=== PATIENT | male | born 2000 | race Caucasian/White ===

== ENCOUNTER 2022-07-16 08:00 | Outpatient (CLI) | payer OTHER | END 2022-07-16 23:59 | disposition home or self-care (01) | LOC: LAB.N 08:00 | PROVIDERS: ATTEND Registered Nurse | DX: L08.9 Local infection of the skin and subcutaneous tissue, unspecified (principal) | CPT/HCPCS: 87070; 87181; 87205 ==

== ENCOUNTER 2022-09-30 18:21 | Emergency (ER) | payer MEDICAID ==
[2022-09-30] MEDS ORDERED: TETANUS/DIPHTHERIA/PERTUSSIS 0.5 ML SYRINGE IM ONE (18:45)
[2022-09-30] MEDS ORDERED: LIDOCAINE 1%-EPI 1:100000 20 ML MDV SUBQ STA (18:46)
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
[2022-09-30 19:43] VITALS: BP 149/91
--- NOTE | 2022-09-30 19:46 | XRAY Report ---
PROCEDURE: Wrist 4 View RT INDICATIONS: knee/hand wrist inj TECHNIQUE: 4 views of the wrist were acquired. COMPARISON: X-ray right wrist, 12/20/2012. X-ray right hand, 09/30/2022. FINDINGS: Bones: No fractures or dislocations. No suspicious bony lesions. Scaphoid view: Scaphoid is intact. Soft tissues: No suspicious soft tissue calcifications. IMPRESSION: No acute osseous abnormality. If clinical symptoms persist, consider follow-up exam in 7-10 days. Reviewed by: Pascual Pinto MD on 09/30/2022 7:45 PM PST Approved by: Pascual Pinto MD on 09/30/2022 7:45 PM PST Station ID: [id number]
--- NOTE | 2022-09-30 19:49 | XRAY Report ---
PROCEDURE: Hand 3 View RT INDICATIONS: knee/hand wrist inj TECHNIQUE: 3 views of the hand(s) acquired. COMPARISON: X-ray right hand, 12/20/2012. FINDINGS: Bones: No fractures or dislocations. No suspicious bony lesions. Note is made of a metallic ring i n the first finger, obscuring adjacent osseous structures. Soft tissues: No suspicious soft tissue calcifications. IMPRESSION: No acute osseous abnormality is identified. If clinical symptoms persist, consider a follow-up exam i n 7-10 days. Reviewed by: Pascual Pinto MD on 09/30/2022 7:48 PM PST Approved by: Pascual Pinto MD on 09/30/2022 7:48 PM PST Station ID: [id number]
--- NOTE | 2022-09-30 19:52 | XRAY Report ---
PROCEDURE: Knee 4 View LT INDICATIONS: knee/hand wrist inj TECHNIQUE: 4 views of the left knee(s) were acquired. COMPARISON: X-ray left knee, 12/17/2013. FINDINGS: Bones: Patella appears inferiorly displaced. No fractures. No suspicious bony lesions. Soft tissues: No joint effusion. No suspicious soft tissue calcifications. IMPRESSION: Patella appears inferiorly displaced. The finding could be due to quadriceps rupture. Recommend clinical correlation. If clinically indicated, MRI may be helpful. Reviewed by: Pascual Pinto MD on 09/30/2022 7:51 PM PST Approved by: Pascual Pinto MD on 09/30/2022 7:51 PM PST Station ID: [id number]
[2022-09-30] MEDS ORDERED: IBUPROFEN 800 MG TABLET PO STA (20:13)
== END 2022-09-30 20:26 | disposition home or self-care (01) ==
LOC: ED 18:21
DX: S81.012A Laceration without foreign body, left knee, initial encounter (principal); S63.501A Unspecified sprain of right wrist, initial encounter; S63.630A Sprain of interphalangeal joint of right index finger, initial encounter; X58.XXXA Exposure to other specified factors, initial encounter; Y93.55 Activity, bike riding; Z23 Encounter for immunization; Z71.85 Encounter for immunization safety counseling
CPT/HCPCS: 12001; 73110; 73130; 73564; 90471; 90715; 99284; A9270

== ENCOUNTER 2022-10-06 09:01 | Outpatient (CLI) | payer MEDICAID ==
--- NOTE | 2022-10-06 12:39 | XRAY Report ---
PROCEDURE: Knee 4 View LT INDICATIONS: LEFT KNEE PAIN TECHNIQUE: 4 views of the left knee(s) were acquired. COMPARISON: None. FINDINGS: Bones: No fractures or dislocations. No suspicious bony lesions. Soft tissues: No joint effusion. No suspicious soft tissue calcifications. IMPRESSION: Normal left knee radiographs Reviewed by: Steve Benavides MD on 10/06/2022 11:38 AM [facility]UST Approved by: Steve Benavides MD on 10/06/2022 11:38 AM [facility]UST Station ID: [id number]
== END 2022-10-06 09:02 | disposition home or self-care (01) ==
LOC: DI.WOS 09:01
PROVIDERS: ATTEND Orthopaedic Surgery
DX: M25.562 Pain in left knee (principal)

== ENCOUNTER 2023-02-23 13:15 | Outpatient (CLI) | payer MEDICAID ==
[2023-02-23 17:55] LABS: BASOPHILS # (AUTO) 0.1 10^3/uL (0.0-0.1); BASOPHILS % (AUTO) 1.1 %; EOSINOPHILS # (AUTO) 0.3 10^3/uL (0.0-0.7); HCT - HEMATOCRIT 49.7 % (42.0-52.0); HGB - HEMOGLOBIN 16.6 g/dL (14.0-18.0); LYMPHOCYTES # (AUTO) 1.8 10^3/uL (1.5-3.5); LYMPHOCYTES % (AUTO) 23.9 %; MEAN CORPUSCULAR HEMOGLOBIN 30.1 pg (27.0-31.0); MEAN CORPUSCULAR HGB CONC 33.4 g/dL (32.0-36.0); MEAN CORPUSCULAR VOLUME 90.2 fL (80.0-94.0); MEAN PLATELET VOLUME 10.2 fL (7.4-11.4); MONOCYTES # (AUTO) 0.7 10^3/uL (0.0-1.0); MONOCYTES % (AUTO) 8.7 %; NEUTROPHILS # (AUTO) 4.7 10^3/uL (1.5-6.6); NEUTROPHILS % (AUTO) 61.8 %; PLT - PLATELET COUNT 306 10^3/uL (130-450); RED BLOOD COUNT 5.51 10^6/uL (4.70-6.10); RED CELL DISTRIBUTION WIDTH 12.4 % (12.0-15.0); WHITE BLOOD COUNT 7.6 x10^3/uL (4.8-10.8)
[2023-02-23 18:13] LABS: ALBUMIN 4.3 g/dL (3.2-5.5); ALBUMIN/GLOBULIN RATIO 1.2 (1.0-2.2); ALKALINE PHOSPHATASE 64 IU/L (42-121); ALT ALANINE AMINOTRANSFERASE 43 IU/L (10-60); AST ASPARTATE AMINOTRANSFERASE 31 IU/L (10-42); BILIRUBIN,TOTAL 0.6 mg/dL (0.2-1.0); BUN - BLOOD UREA NITROGEN 10 mg/dL (6-20); CALCIUM 9.3 mg/dL (8.5-10.3); CARBON DIOXIDE - CO2 27 mmol/L (21-32); CHLORIDE 105 mmol/L (101-111); CREATININE 0.8 mg/dL (0.6-1.2); GAMMA GLUTAMYL TRANSPEPTIDASE 36 IU/L (8-55); GFR - MDRD 119 (>89); GLUCOSE 103 mg/dL (70-100); LIPASE 30 U/L (22-51); POTASSIUM 4.4 mmol/L (3.5-5.0); SODIUM 136 mmol/L (135-145); TOTAL PROTEIN 7.8 g/dL (6.7-8.2)
[2023-02-23 18:43] LABS: CRP - C-REACTIVE PROTEIN < 1.0 mg/dL (0-1.0)
[2023-02-23 20:28] LABS: ESTIMATED AVERAGE GLUCOSE 97 mg/dL (70-100)
== END 2023-02-23 13:30 | disposition home or self-care (01) ==
LOC: LAB.N 13:15
PROVIDERS: ATTEND Registered Nurse
DX: R19.7 Diarrhea, unspecified (principal); R11.2 Nausea with vomiting, unspecified; R07.89 Other chest pain; R10.9 Unspecified abdominal pain
CPT/HCPCS: 36415; 80053; 82977; 83036; 83690; 84443; 85025; 86140